=== PATIENT | male | born 1990 | race Two or more races ===

== ENCOUNTER 2022-04-26 21:13 | Emergency (ER) | payer OTHER ==
[~2022-04-26] VITALS: Ht 167.6 cm; Wt 77.1 kg
[2022-04-26] MEDS ORDERED: MELOXICAM7.5 MG PO (21:43)
== END 2022-04-26 22:45 | disposition home or self-care (01) ==
LOC: FSED 21:22
DX: M25.572 Pain in left ankle and joints of left foot (principal); M76.62 Achilles tendinitis, left leg; Y93.01 Activity, walking, marching and hiking; Y92.008 Other place in unspecified non-institutional (private) residence as the place of occurrence of the external cause
CPT/HCPCS: 99282